=== PATIENT | male | born 1950 | race Caucasian/White ===

== ENCOUNTER → 2016-05-31 | Outpatient (REF) | payer OTHER ==
[2016-05-31 12:53] LABS: ALBUMIN 4.4 g/dL (3.4-5.0); ANION GAP 17.3 MEQ/L (3-15); CALCULATED IONIZED CALCIUM 4.2 mg/dL (3.8-4.6); TOTAL PROTEIN 7.3 g/dL (6.4-8.5)
== END ==
LOC: LAB 12:07
PROVIDERS: ATTEND Family Medicine
DX: N40.0 Benign prostatic hyperplasia without lower urinary tract symptoms (principal); E78.00 Pure hypercholesterolemia, unspecified
CPT/HCPCS: 80053; 80061